=== PATIENT | female | born 2000 | race African-American/Black ===

== ENCOUNTER 2024-09-06 22:51 | Emergency (ER) | payer OTHER, SELFPAY ==
[2024-09-06 22:57] VITALS: BP 109/64; PULSE 80; RESP 14; TEMP 36.6; O2SAT 99; BMI 17.9
--- NOTE | 2024-09-06 23:08 | ED.EXTPRO ---
HPI - Extremity Problem General Chief complaint: Extremity Problem,Nontraumatic Stated complaint: px and swelling in finger Time Seen by Provider: 09/06/24 22:58 Source: patient Mode of arrival: Ambulatory History of Present Illness HPI Narrative: 23-year-old woman with no significant medical history comes in complaining of pain in the tip of her right index finger. She does not remember any trauma to the area, it has been bothering her for 3 days she has no other complaints Patient History Smoking Status: Never smoker Exam Initial Vital Signs Initial Vital Signs: Vital Signs Temperature 97.9 F 09/06/24 22:57 Pulse Rate 80 09/06/24 22:57 Respiratory Rate 14 09/06/24 22:57 Blood Pressure 109/64 09/06/24 22:57 Pulse Oximetry 99 09/06/24 22:57 Oxygen Delivery Method Room Air 09/06/24 22:57 General: Alert appropriate in no acute distress Respiratory: Able to speak in full sentences, no obvious respiratory distress Extremity: There is some minor fullness to the pad of her right index finger. It almost looks like there is a bruise that is causing some swelling. There is no joint swelling or pain, there was no paronychial infection, there was no pain or tenderness when moving the fingernail itself. There was no obvious splinter foreign body. Psych: appropriate insight and affect, cooperative Course Vital Signs Vital signs: Vital Signs - 8 hr 09/06/24 22:57 Temperature 97.9 F Pulse Rate 80 Respiratory Rate 14 Blood Pressure 109/64 Pulse Oximetry 99 Oxygen Delivery Method Room Air MDM - Extremity (Nontraumatic) MDM Narrative Medical decision making narrative: 23-year-old woman presents with pain in the tip of her right index finger. It does appear minimally swollen but no evidence of foreign body, paronychial infection, subungual hematoma, felon or joint inflammation. She is given aluminum finger splint to protect the tip of her finger. Recommended ibuprofen it continues to hurt. If she notices swelling or new findings encouraged her to return to the ER Discharge Plan Departure Patient Disposition: Home Clinical Impression: Finger pain, right Referrals: Miscellaneous,Doctor [Non-Staff] - Stand Alone Forms: Patient Portal/API/Survey
== END 2024-09-06 23:05 | disposition home or self-care (01) ==
PROVIDERS: Emergency Provider Emergency Medicine
DX: M79.644 Pain in right finger(s) (principal)
CPT/HCPCS: 99281

== ENCOUNTER 2024-11-17 19:06 | Emergency (ER) | payer OTHER, SELFPAY ==
[2024-11-17 19:09] VITALS: BP 117/67; PULSE 94; RESP 16; TEMP 36.8; O2SAT 96; BMI 18.3
--- NOTE | 2024-11-17 19:58 | ED_ITS ---
HPI - Nausea/Vomiting/Diarrhea General Chief complaint: Nausea/Vomiting/Diarrhea Stated complaint: Vomiting/diarrheia Time Seen by Provider: 11/17/24 19:36 Source: patient Mode of arrival: Ambulatory History of Present Illness HPI Narrative: 24-year-old female with no significant past medical history presents with nonbilious nonbloody vomit with numerous bouts of watery diarrhea started yesterday after eating pasta from [employer]. Patient reports no sick contacts able to [place] but continues to be symptomatic with diarrhea. Patient reports a mild headache right now also in the top of the head but no stiff neck, rash, blurred vision dizziness, lightheaded or trauma to the area. Other than what is stated 14 point review of system is negative. Related Data Previous Rx's ?Medication ?Instructions ?Recorded diphenoxylate-atropine 2.5 1 tab PO BEDTIME PRN diarrh ea #5 11/17/24 mg-0.025 mg tablet (Lomotil) tabs Allergies Allergy/AdvReac Type Severity Reaction Status Date / Time No Known Drug Allergies Allergy Verified 11/17/24 19:09 Review of Systems Review of Systems ROS Unobtainable: All systems reviewed & are unremarkable except as noted in HPI and below Patient History Social History Smoking Status: Never smoker Smoking Status: Never smoker Exam Narrative Exam Narrative: GENERAL: [24] year old patient appears stated age. Well-developed patient, in mild distress. HEAD: Atraumatic. Normocephalic. EYES: Pupils equal round and reactive. Extraocular motions intact. No scleral icterus. No injection or drainage. ENT: Nose without bleeding, purulent drainage. Throat without erythema, tonsillar hypertrophy or exudate. Airway patent. NECK: Trachea midline. Non tender CARDIOVASCULAR: Regular rate and rhythm without murmurs, gallops, or rubs. RESPIRATORY: Clear to auscultation. Breath sounds equal bilaterally. No wheezes, rales, or rhonchi. GASTROINTESTINAL: Abdomen soft, non-tender, nondistended. EXTREMITIES: No edema or joint tenderness. BACK: Nontender without deformity or crepitance. No flank tenderness. NEURO: AOx3. SKIN: No rash or erythema of visible areas Initial Vital Signs Initial Vital Signs: Vital Signs Temperature 98.2 F 11/17/24 19:09 Pulse Rate 94 H 11/17/24 19:09 Respiratory Rate 16 11/17/24 19:09 Blood Pressure 117/67 11/17/24 19:09 Pulse Oximetry 96 11/17/24 19:09 Oxygen Delivery Method Room Air 11/17/24 19:09 Course Vital Signs Vital signs: Vital Signs - 8 hr 11/17/24 19:09 Temperature 98.2 F Pulse Rate 94 H Respiratory Rate 16 Blood Pressure 117/67 Pulse Oximetry 96 Oxygen Delivery Method Room Air MDM - Nausea/Vomiting/Diarrhea MDM Narrative Medical decision making narrative: Vital signs, nurse triage note, medication list, previous ER visit and all imaging visits all reviewed. Patient has tolerated p.o.challenge. Differential diagnosis includes viral gastroenteritis, Salmonella Shigella, enteric pathogen. DC home on Lomotil keep hydrated. Discharge Plan Departure Patient Disposition: Home Clinical Impression: Vomiting and diarrhea Instructions: DI for Diarrhea and Traveler's Diarrhea -- Adult Prescriptions: New diphenoxylate-atropine [Lomotil] 2.5-0.025 mg tablet 1 tab PO BEDTIME PRN (Reason: diarrhea) Qty: 5 0RF Referrals: ProviderLowell [Primary Care Provider, Family Practice] Stand Alone Forms: Patient Portal/API
[2024-11-17] MEDS: IBUPROFEN 400 MG TABLET 800 MG PO (20:20)
[2024-11-17] MEDS: ACETAMINOPHEN 325 MG TABLET 975 MG PO (20:20)
[2024-11-17 20:47] VITALS: BP 110/60; PULSE 86; RESP 16; O2SAT 100
== END 2024-11-17 20:48 | disposition home or self-care (01) ==
PROVIDERS: Emergency Provider Family Medicine
DX: R11.2 Nausea with vomiting, unspecified (principal); R19.7 Diarrhea, unspecified
CPT/HCPCS: 99283

== ENCOUNTER 2025-03-10 09:55 | Emergency (ER) | payer OTHER, SELFPAY ==
[2025-01-14 21:31] VITALS: BMI 19.5
[2025-03-10] VITALS (11 sets, daily range): BP systolic 88–118; BP diastolic 51–76; PULSE 72–90; RESP 14–24; TEMP 36.7; O2SAT 93–100; BMI 18.3
--- NOTE | 2025-03-10 10:06 | EKG_ITS ---
[address] [address] [address], [place] [address] Test Date: 2025-03-10 Pat Name: Trupti Hale Department: Room: Gender: Female [employer] Operator: PAOLA : 2000 Requested By: Order Number: [id number] Reading MD: Marshall Edwards MD Measurements Intervals [place] Rate: 76 P: 69 WI: 126 QRS: 89 QRSD: 84 T: 55 QT: 352 QTc: 396 Interpretive Statements Normal sinus rhythm with sinus arrhythmia Electronically Signed On 03-11-2025 6:45:57 PDT by Marshall Edwards MD
--- NOTE | 2025-03-10 10:16 | DI.RAD.S_ITS ---
PROCEDURE: XR CHEST 1V INDICATIONS: chest pain TECHNIQUE: One view of the chest was acquired. COMPARISON: [facility], CR, XR CHEST 1V, 01/14/2025, 15:10. FINDINGS: Surgical changes and devices: None. Lungs and pleura: Lungs are clear. No pleural effusions or pneumothorax. Mediastinum: Mediastinal contours appear normal. Heart size is normal. Bones and chest wall: No suspicious bony lesions. Overlying soft tissues appear unremarkable. IMPRESSION: No acute cardiopulmonary abnormality is seen. Dictated by: Neyda Pugh MD, PhD on 03/10/2025 at 10:34 Approved by: Neyda Pugh MD, PhD on 03/10/2025 at 10:35
--- NOTE | 2025-03-10 10:19 | ED.CHESTPAIN ---
HPI - Chest Pain General Chief Complaint: Chest Pain Stated Complaint: Chest pain, headaches on and off for 2 months Time Seen by Provider: 03/10/25 10:09 History of Present Illness HPI narrative: Patient is a 24-year-old female presenting today with persistent chest pain and headache. She reports that she has had chest pain since December but continues to persist. She was actually seen and admitted here overnight for chest pain. She had indeterminate troponin where she actually trended down words. She had a workup including a head CT and a CT angio. She continues to have pinpoint chest pain over her sternum she reports that it is worse whenever she bends over but is able to bend over and tie her shoes. She is having ongoing headache and nausea Related Data Previous Rx's ?Medication ?Instructions ?Recorded ondansetron 4 mg disintegrating 4 mg PO Q8H PRN nausea and 03/10/25 tablet vomiting #10 tabs Allergies Allergy/AdvReac Type Severity Reaction Status Date / Time No Known Drug Allergies Allergy Verified 03/10/25 10:18 Patient History Social History household members: spouse Smoking Status: Never smoker alcohol intake: never Exam Initial Vital Signs Initial Vital Signs: Vital Signs Pulse Rate 85 03/10/25 10:04 Respiratory Rate 17 03/10/25 10:04 Blood Pressure 118/76 03/10/25 10:04 Pulse Oximetry 98 03/10/25 10:04 Oxygen Delivery Method Room Air 03/10/25 10:04 GENERAL: Alert well-appearing 24-year-old female and in no acute distress. HEENT: Head atraumatic,EOMI, pupils reactive, face symmetric, moist mucous membranes CARDIOVASCULAR: Regular rate and rhythm without murmurs, rubs or gallops. Pain is reproducible on sternum RESPIRATORY: Breath sounds equal bilaterally, no wheezes rales or rhonchi. ABDOMEN: Soft, nontender. Normoactive bowel sounds all 4 quadrants. No guarding or rebound. EXTREMITIES: Normal range of motion, no clubbing or edema. Neurovascularly intact NEUROLOGICAL: Alert and oriented x4.Normal gait and speech. Cranial nerves II through XII grossly intact. SKIN: Warm, dry, no laceration, no petechiae, no rashes or lesions. Course Orders Ordered: ED Orders 03/10/25 10:10 Complete Blood Count AUTO DIFF Stat Comprehensive Metabolic Panel Stat D Dimer Stat Lipase Stat Magnesium Stat Troponin I Stat 03/10/25 10:16 XR chest 1V Stat 03/10/25 12:00 HCG Quantitative /Beta subunit Stat Trop I [Troponin I] Stat 03/10/25 12:16 US pelvic complete Stat Discontinued Medications Sodium Chloride (Normal Saline 0.9%) 1,000 mls @ 1,000 mls/hr IV BOLUS ONE Stop: 03/10/25 12:30 Last Infusion: 03/10/25 13:00 Dose: Infused Documented By: Admin: 03/10/25 12:01 Dose: 1,000 mls/hr Documented By: JAMES Ketorolac Tromethamine (Ketorolac 30 Mg/Ml Vial) 15 mg IV NOW ONE Stop: 03/10/25 10:17 Last Admin: 03/10/25 10:34 Dose: 15 mg Documented By: JAMES Ondansetron HCl (Ondansetron 4 Mg/2 Ml Inj) 4 mg IV NOW ONE Stop: 03/10/25 10:17 Last Admin: 03/10/25 10:34 Dose: 4 mg Documented By: JAMES Vital Signs Vital signs: Vital Signs - 8 hr 03/10/25 10:04 03/10/25 10:04 03/10/25 10:05 Temperature 98.0 F Pulse Rate 85 72 Respiratory Rate 17 15 Blood Pressure 118/76 118/76 Pulse Oximetry 98 99 Oxygen Delivery Method Room Air Room Air 03/10/25 10:27 03/10/25 10:27 03/10/25 10:30 Temperature Pulse Rate 82 76 Respiratory Rate 14 17 Blood Pressure 109/67 Pulse Oximetry 99 99 Oxygen Delivery Method 03/10/25 10:30 03/10/25 10:59 03/10/25 10:59 Temperature Pulse Rate 90 Respiratory Rate 16 Blood Pressure 103/68 113/62 Pulse Oximetry 93 Oxygen Delivery Method 03/10/25 11:00 03/10/25 11:00 03/10/25 11:30 Temperature Pulse Rate 72 73 Respiratory Rate 17 20 Blood Pressure 109/62 Pulse Oximetry 100 96 Oxygen Delivery Method 03/10/25 11:30 03/10/25 12:00 03/10/25 12:00 Temperature Pulse Rate 72 Respiratory Rate 23 Blood Pressure 93/57 L 88/51 L Pulse Oximetry 94 Oxygen Delivery Method 03/10/25 12:30 03/10/25 12:30 03/10/25 13:00 Temperature Pulse Rate 84 88 Respiratory Rate 19 21 Blood Pressure 99/56 L Pulse Oximetry 96 100 Oxygen Delivery Method Room Air 03/10/25 13:00 03/10/25 13:30 03/10/25 13:30 Temperature Pulse Rate 90 Respiratory Rate 24 Blood Pressure 102/59 L 98/61 Pulse Oximetry 96 Oxygen Delivery Method MDM - Chest Pain Lab Data 03/10/25 10:10 03/10/25 10:10 Labs: Lab Results 03/10/25 03/10/25 Range/Units 10:10 12:00 WBC 7.8 (4.5-11.0) X10^3/uL RBC 4.77 (4.0-5.2) X10^6/uL Hgb 14.2 (12.0-16.0) g/dL Hct 41.8 (36-46) % MCV 87.7 (80-100) fL MCH 29.7 (26-34) PG MCHC 33.9 (30-36) % RDW 13.0 (11.6-14.8) % Plt Count 226 (150-400) X10^3/uL Neut % (Auto) 67.9 (50-75) % Lymph % (Auto) 23.4 L (25-40) % [place] % (Auto) 6.9 (3-14) % Eos % (Auto) 1.3 L (2-4) % Baso % (Auto) 0.5 (0-2) % Neut # (Auto) 5300 (0845-3503) /uL Lymph # (Auto) 1800 (6691-3843) /uL [place] # (Auto) 500 (0-900) /uL Eos # (Auto) 100 (0-450) /uL Baso # (Auto) 0 (0-100) /uL D-Dimer 220 (<500) ng/ml Sodium 135 L (137-145) mmol/L Potassium 4.1 (3.4-5.1) mmol/L Chloride 102 (98-107) mmol/L Carbon Dioxide 26 (22-32) mmol/L BUN 10 (7-17) mg/dL Creatinine 0.59 (0.52-1.04) mg/dL Estimated GFR > 60 (>60) mL/min BUN/Creatinine Ratio 16.9 (6-22) Glucose 98 (70-99) mg/dL POC Whole Bld Glucose 111 H (70-99) mg/dL Calcium 9.6 (8.4-10.2) mg/dL Magnesium 1.6 (1.6-2.3) mg/dL Total Bilirubin 0.5 (0.2-1.3) mg/dL AST 24 (14-36) IU/L ALT 14 (<35) IU/L Alkaline Phosphatase 42 (38-126) U/L Troponin I 0.032 < 0.012 (0.01-0.034) ng/mL Total Protein 8.3 H (6.3-8.2) g/dL Albumin 4.8 (3.5-5.0) g/dL Globulin 3.5 (1.7-4.1) g/dL Albumin/Globulin Ratio 1.4 (1.0-2.8) Lipase 107 (23-300) U/L HCG, Quant 288.17 mIU/mL Point of Care Testing Test Results Positive Urine Dip Bedside Urine Glucose Negative Bedside Urine Bilirubin - Negative Bedside Urine Ketone - Negative Urine Specific [place] 1.020 Bedside Urine Occult Blood - Negative Bedside Urine pH 6.0 Bedside Urine Protein - Negative Bedside Urine Urobilinogen - Negative Bedside Urine Nitrite - Negative Bedside Urine Leukocytes - Negative Esterase Imaging Data US - OB: Radiologist's Impression: PROCEDURE: US PELVIC COMPLETE INDICATIONS: DATES TECHNIQUE: Real-time scanning was performed of the pelvic organs, with image documentation. Additional endovaginal scanning was necessary due to incomplete visualization of the adnexal and endometrial structures by transabdominal scanning. COMPARISON: None. FINDINGS: Uterus: Uterus is retroverted and normal in size at 8.1 x 5.6 x 5.9 cm. The myometrium is homogeneous. The endometrial stripe is thickened at 27 mm. No findings of an intrauterine gestational sac can be seen. No abnormal vascularity can be seen along the medial stripe. Ovaries: The right ovary measures 4.1 x 4.3 x 3.4 cm, with a calculated ovarian volume of 31.1 cc. A right ovarian complex cyst is seen, without abnormal vascularity. The left ovary measures 1.5 x 2.2 x 1.5 cm, with a calculated ovarian volume of 2.6 cc. Less than 12 follicles can be seen in each ovary. No adnexal masses are seen. Note is made of prominent adnexal vessels on both sides, left more than right. Other: No pathologic free abdominal or pelvic fluid. IMPRESSION: No intrauterine is seen. The endometrial stripe is thickened, yet without abnormal vascularity. No alex findings of ectopic can be seen, although there is a complex cyst seen of the right ovary, without abnormal vascularity. Close clinical followup, with serial beta-hCG and serial ultrasound are recommended, if clinically appropriate. A prominent adnexal vessels can be seen on both sides, left worse than right. Please consider adnexal varices. We strive to produce accurate, complete, and clear reports of imaging services. To assist us in improving patient care, this report was composed using standard report templates and voice recognition software. Therefore, it may contain abnormal punctuation, insertions and/or omissions. Occasional wrong-word or sound-alike substitutions may occur. Though we review the report and make efforts to correct it, we do recommend that the report be read carefully in proper context to recognize any text inaccuracies. Dictated by: Reno Cortez M.D. on 03/10/2025 at 12:08 Chest x-ray: Radiologist's Impression: PROCEDURE: XR CHEST 1V INDICATIONS: chest pain TECHNIQUE: One view of the chest was acquired. COMPARISON: [facility], , XR CHEST 1V, 01/14/2025, 15:10. FINDINGS: Surgical changes and devices: None. Lungs and pleura: Lungs are clear. No pleural effusions or pneumothorax. Mediastinum: Mediastinal contours appear normal. Heart size is normal. Bones and chest wall: No suspicious bony lesions. Overlying soft tissues appear unremarkable. IMPRESSION: No acute cardiopulmonary abnormality is seen. Dictated by: Neyda Pugh MD, PhD on 03/10/2025 at 10:34 ECG Data Attestation: I personally reviewed and interpreted this ECG as follows: Prior ECG tracings: available for review Interpretation: Normal sinus rhythm rate 76 GA interval 146 QRS [address] changes no T-wave inversion no GA depression MDM Narrative Medical decision making narrative: MDM CC: Chest pain headache nausea Complicating co-morbidities: [ ] Data collected from: Medical records reviewed: Recent admission just with the . She had an echocardiogram which was negative EKGs was thought to be early repolarization pericarditis she just has some mild elevation of troponin not positive to NSTEMI level just indeterminate. She had imaging of the head CT and CT angio which were also negative Differential considered: Pericarditis costochondritis pleurisy Exam documented above, pertinent findings include: Alert well-appearing 24-year-old nontender over starting lungs are clear Lab Test results independently reviewed as above. Pertinent findings: CBC no leukocytosis no anemia D-dimer 220 CMP no electrolyte abnormalities Troponin0.032-->0.012 positive HCG 288 Independently reviewed EKG as above sinus rhythm no ST elevations no GA depressions no evidence of pericarditis or acute ischemia Imaging studies independently reviewed: Pelvic ultrasound shows thickened endometrial stripe no evidence of IUP Consultations: [ ] Treatments: Toradol Zofran IV fluids Re-evaluations: Patient is feeling better after Toradol both headache and chest pain have improved. Discussion: Patient 24-year-old female presenting today with ongoing chest pain headache and nausea. She has had this ongoing since December she had a workup and was admitted here back then. She had a normal echocardiogram at the time. This was thought to just be atypical chest pain not pericarditis. Today blood work is overall reassuring she has 2- troponins feeling better after Toradol which seems to be that it is more musculoskeletal an inflammatory. However she is unexpectedly found . She can no longer take NSAIDs. Ultrasound does not show IUP, hCG is positive. At this time did not recommend any further NSAIDs Tylenol only. Discharge Plan Departure Patient Disposition: Home Clinical Impression: Atypical chest pain, Instructions: Common Discomforts and Bodily Changes During , DI for Atypical Chest Pain Activity Restrictions/Additional Instructions: *You have been diagnosed with atypical chest pain *What to do: Passes time you are thought to be very early on in your , blood work is still pending to confirm your *Continue to take medications as directed vitamins Tylenol 1000 mg every 6 hours if needed for [id number] pain Zofran 4 mg every 8 hours if needed for nausea or vomiting *Follow up with your primary care provider in 2-3 days or call [phone] *Return to ER if you should have increasing chest pain increasing pelvic pain or vaginal bleeding or any new, worsening or concerning symptoms Prescriptions: New ondansetron 4 mg tablet,disintegrating 4 mg PO Q8H PRN (Reason: nausea and vomiting) Qty: 10 0RF Referrals: ProviderLowell [Primary Care Provider, Family Practice] Stand Alone Forms: Patient Portal/API
[2025-03-10 10:32] LABS: Add Manual Diff / Slide Review NO; Hematocrit 41.8 % (36-46); Hemoglobin 14.2 g/dL (12.0-16.0); Lymphocytes Absolute Auto 1800 /uL (1100-4500); Mean Corpuscular HGB Conc 33.9 % (30-36); Mean Corpuscular Hemoglobin 29.7 PG (26-34); Mean Corpuscular Volume 87.7 fL (80-100); Platelet Count 226 X10^3/uL (150-400)
[2025-03-10] MEDS: ONDANSETRON 4 MG/2 ML INJ IV (10:34)
[2025-03-10] MEDS: KETOROLAC 30 MG/ML VIAL 15 MG IV (10:34)
[2025-03-10 10:38] LABS: Alanine Aminotransferase 14 IU/L (<35); Albumin 4.8 g/dL (3.5-5.0); Albumin Globulin Ratio 1.4 (1.0-2.8); Alkaline Phosphatase 42 U/L (38-126); Blood Urea Nitrogen 10 mg/dL (7-17); Calcium 9.6 mg/dL (8.4-10.2); Carbon Dioxide 26 mmol/L (22-32); Chloride 102 mmol/L (98-107); Estimated Glomerular Filt Rate > 60 mL/min (>60); Globulin 3.5 g/dL (1.7-4.1); Glucose 98 mg/dL (70-99); HEMOLYSIS 35 (0-50); Lipase 107 U/L (23-300); Magnesium 1.6 mg/dL (1.6-2.3); Potassium 4.1 mmol/L (3.4-5.1); Sodium 135 mmol/L (137-145); Total Protein 8.3 g/dL (6.3-8.2)
[2025-03-10 10:50] LABS: Troponin I 0.032 ng/mL (0.01-0.034)
[2025-03-10] MEDS: SODIUM CHLORIDE 0.9% 1,000 ML 1000 ML IV (12:01)
--- NOTE | 2025-03-10 12:16 | DI.US.S_ITS ---
PROCEDURE: US PELVIC COMPLETE INDICATIONS: DATES TECHNIQUE: Real-time scanning was performed of the pelvic organs, with image documentation. Additional endovaginal scanning was necessary due to incomplete visualization of the adnexal and endometrial structures by transabdominal scanning. COMPARISON: None. FINDINGS: Uterus: Uterus is retroverted and normal in size at 8.1 x 5.6 x 5.9 cm. The myometrium is homogeneous. The endometrial stripe is thickened at 27 mm. No findings of an intrauterine gestational sac can be seen. No abnormal vascularity can be seen along the medial stripe. Ovaries: The right ovary measures 4.1 x 4.3 x 3.4 cm, with a calculated ovarian volume of 31.1 cc. A right ovarian complex cyst is seen, without abnormal vascularity. The left ovary measures 1.5 x 2.2 x 1.5 cm, with a calculated ovarian volume of 2.6 cc. Less than 12 follicles can be seen in each ovary. No adnexal masses are seen. Note is made of prominent adnexal vessels on both sides, left more than right. Other: No pathologic free abdominal or pelvic fluid. IMPRESSION: No intrauterine is seen. The endometrial stripe is thickened, yet without abnormal vascularity. No alex findings of ectopic can be seen, although there is a complex cyst seen of the right ovary, without abnormal vascularity. Close clinical followup, with serial beta-hCG and serial ultrasound are recommended, if clinically appropriate. A prominent adnexal vessels can be seen on both sides, left worse than right. Please consider adnexal varices. We strive to produce accurate, complete, and clear reports of imaging services. To assist us in improving patient care, this report was composed using standard report templates and voice recognition software. Therefore, it may contain abnormal punctuation, insertions and/or omissions. Occasional wrong-word or sound-alike substitutions may occur. Though we review the report and make efforts to correct it, we do recommend that the report be read carefully in proper context to recognize any text inaccuracies. Dictated by: Reno Cortez M.D. on 03/10/2025 at 12:08 Approved by: Reno Cortez M.D. on 03/10/2025 at 12:10
[2025-03-10 12:43] LABS: Troponin I < 0.012 ng/mL (0.01-0.034)
[2025-03-10 13:51] LABS: HCG Quantitative /Beta subunit 288.17 mIU/mL
== END 2025-03-10 13:46 | disposition home or self-care (01) ==
PROVIDERS: Emergency Provider Emergency Medicine
DX: R07.89 Other chest pain (principal); R51.9 Headache, unspecified; R11.0 Nausea; Z33.1 Pregnant state, incidental
CPT/HCPCS: 36415; 71045; 76830; 76856; 80053; 81003; 81025; 82962; 83690; 83735; 84484; 84702; 85025; 85379; 93005; 93010; 96361; 96374; 96375; 99284; J1885; J2405; J7030